=== PATIENT | female | born 1985 | race Two or more races ===

== ENCOUNTER 2023-11-02 10:13 | Day surgery (SDC) | payer SELFPAY ==
[2023-11-02 11:10] LABS: BASOPHILS PERCENT AUTO 0.2 % (0.0-1.0); EOSINOPHILS PERCENT AUTO 0.3 % (0.0-6.0); HEMATOCRIT 42.6 % (37.0-47.0); IMMATURE GRAN ABSOLUTE AUTO 0.04 K/mm3 (0.00-0.05); IMMATURE GRAN PERCENT AUTO 0.3 % (0.0-0.4); LYMPHOCYTES ABSOLUTE AUTO 2.3 K/mm3 (1.0-4.8); LYMPHOCYTES PERCENT AUTO 17.6 % (24.0-44.0); MEAN CORPUSCULAR HEMOGLOBIN 30.4 pg (28.0-32.0); MEAN CORPUSCULAR HGB CONC 32.9 g/dl (32.0-36.0); MEAN CORPUSCULAR VOLUME 92.4 fl (83.0-99.0); MEAN PLATELET VOLUME 8.8 fl (9.4-12.3); MONOCYTES ABSOLUTE AUTO 0.8 K/mm3 (0.0-0.8); MONOCYTES PERCENT AUTO 6.3 % (0.0-8.0); NEUTROPHILS PERCENT AUTO 75.3 % (41.0-71.0); PLATELET COUNT,PLT 288 K/mm3 (150-400); RED BLOOD CELL COUNT 4.61 M/mm3 (4.10-5.30); WHITE BLOOD CELL COUNT,WBC 13.24 K/mm3 (3.9-11.3)
[2023-11-02 11:11] LABS: APPEARANCE,URINE CLEAR (Clear); BILIRUBIN,URINE NEGATIVE (Negative); COLOR,URINE LIGHT YELLOW (Yellow); GLUCOSE,URINE NEGATIVE (Negative); KETONES,URINE NEGATIVE (Negative); LEUKOCYTE ESTERASE,URINE NEGATIVE (Negative); NITRITE,URINE NEGATIVE (Negative); OCCULT BLOOD,URINE NEGATIVE (Negative); PROTEIN,URINE NEGATIVE (Negative); UROBILINOGEN,URINE 0.2 (0.2-1.0)
[2023-11-02 11:30] LABS: ALBUMIN 3.6 g/dl (3.4-5.0); ANION GAP 14.6 (5-15); BUN/CREATININE RATIO 8.6 (14-18); CREATININE 0.7 mg/dL (0.55-1.02); EST CRCL DRUG DOSING (CG) 86.18 mL/min; POTASSIUM,K 3.6 mEq/L (3.5-5.1); PROTEIN TOTAL,TP 8.3 g/dl (6.4-8.2)
[2023-11-02 11:31] LABS: A/G RATIO 0.8 (1-2); BILIRUBIN TOTAL 0.7 mg/dL (0.2-1.0); C-REACTIVE PROTEIN 5.48 mg/dL (<0.30); MAGNESIUM 1.9 mg/dL (1.8-2.4)
[2023-11-02] MEDS: Iopamidol 612 MG/ML 100 ML Bottle IVPUSH ONE (11:41)
[2023-11-02 11:42] LABS: LACTIC ACID 1.5 mmol/L (0.4-2.0)
[2023-11-02] MEDS: Sodium Chloride 0.9% 10 ML Syringe FLUSH ONE (11:42)
[2023-11-02] MEDS ORDERED: fentaNYL 250 MCG/5 ML SDV ONE (12:17)
[2023-11-02] MEDS ORDERED: Midazolam 1 MG/ML 2 ML SDV ONE (12:17)
[2023-11-02] MEDS ORDERED: Propofol 200 MG/20 ML SDV ONE (12:17)
[2023-11-02] MEDS ORDERED: Dexamethasone 4 MG/ML 5 ML MDV ONE (12:19)
[2023-11-02] MEDS ORDERED: Rocuronium 50 MG/5 ML Vial ONE (12:19)
[2023-11-02] MEDS ORDERED: Ondansetron 4 MG/2 ML SDV ONE (12:19)
[2023-11-02] MEDS ORDERED: Sugammadex Sodium 200 MG/2 ML VIAL IV ONE (12:19)
[2023-11-02] MEDS ORDERED: Succinylcholine 200 MG/10 ML MDV ONE (12:19)
[2023-11-02] MEDS ORDERED: Piperacillin/Tazobactam 4.5 GM in Sodium Chloride 0.9% 100 ML IV ONE (12:58)
[2023-11-02] MEDS: Sodium Chloride 0.9% 2,000 ML IV ONE (13:00)
[2023-11-02] MEDS: Citric Acid/Sodium Citrate Solution 30 ML Cup PO ONE (13:28)
[2023-11-02] MEDS: Famotidine 20 MG/2 ML SDV IVPUSH ONE (13:28)
[2023-11-02] MEDS: Piperacillin/Tazobactam 4.5 GM in Sodium Chloride 0.9% 100 ML IV ONE (13:29)
[2023-11-02] MEDS ORDERED: fentaNYL 100 MCG/2 ML SDV IVPUSH PRN (13:36)
[2023-11-02] MEDS ORDERED: HYDROmorphone 0.5 MG/0.5 ML Syringe IVPUSH PRN (13:36)
[2023-11-02] MEDS ORDERED: Ondansetron 4 MG/2 ML SDV IVPUSH PRN (13:36)
[2023-11-02] MEDS ORDERED: cefOXitin 2 GM in Premix Bag 1 BAG IV ONE (13:42)
[2023-11-02] MEDS: EPINEPHrine 1 MG/ML SDV ONE (14:04)
[2023-11-02] MEDS: Bupivacaine 0.5% 30 ML SDV ONE (14:04)
[2023-11-02] MEDS ORDERED: oxyCODONE 5 MG Tab PO PRN (14:34)
== END 2023-11-02 16:18 | disposition home or self-care (01) ==
LOC: JD.ED 10:13 → JD.SDS 13:02
PROVIDERS: ATTEND Surgery
DX: K35.33 Acute appendicitis with perforation, localized peritonitis, and gangrene, with abscess (principal)
CPT/HCPCS: 36415; 44970; 74177; 80053; 81003; 83605; 83690; 83735; 84703; 85025; 86140; 99285; A9270; J0171; J0330; J0665; J1100; J2250; J2405; J2543; J2704; J3010; J3490; J7030; Q9967; 00840; 99140